=== PATIENT | male | born 1950 | race Caucasian/White ===

== ENCOUNTER 2020-10-23 16:33 | Inpatient (IN) ==
[2020-10-23] MEDS ORDERED: Dextrose Gel 15 GM/37.5 ML TUBE PO PRN ×2 (23:24)
[2020-10-23] MEDS ORDERED: D5% in Water 1,000 ML IVC PRN (23:24)
[2020-10-23] MEDS ORDERED: *HR* Dextrose 50 % in Water (Vial) 50 ML VIAL IVP PRN (23:24)
[2020-10-23] MEDS: Acetaminophen 325 MG TABLET PO PRN (23:59)
[2020-10-24] MEDS: Acetaminophen 325 MG TABLET PO PRN ×3 (06:06→21:17)
[2020-10-24 06:18] LABS: Basophils # 0.1 K/mcL (0.0-0.2); Basophils % 0.7 %; Eosinophils # 0.4 K/mcL (0.0-0.6); Eosinophils % 4.6 %; Hematocrit 37.3 % (37.5-50.1); Hemoglobin 12.4 g/dL (12.9-16.9); Immature Granulocytes % 0.3 % (0-4); Lymphocytes # 2.2 K/mcL (0.6-4.6); Lymphocytes % 24.1 %; Mean Corpuscular HGB Conc 33.2 g/dL (31.6-35.5); Mean Corpuscular Hemoglobin 30.5 pg (28.0-33.3); Mean Corpuscular Volume 91.6 fL (83.0-100.0); Mean Platelet Volume 11.2 fL (9.4-12.4); Monocytes # 0.7 K/mcL (0.0-1.3); Monocytes % 7.9 %; Neutrophils # 5.6 K/mcL (1.6-8.9); Platelet Count 157 K/mcL (140-400); Red Blood Count 4.07 M/mcL (4.19-5.50); Red Cell Distribution Width 13.9 % (11.5-14.5); Segmented Neutrophils % 62.4 %; White Blood Count 8.9 K/mcL (4.3-11.1)
[2020-10-24 06:31] LABS: INR 1.5; Prothrombin Time 16.9 Seconds (9.4-12.1)
[2020-10-24 06:34] LABS: Activated Partial Thrombo Time 33.2 Seconds (26.0-36.0)
[2020-10-24 06:42] LABS: BUN/Creatinine Ratio 38 (6-26); Blood Urea Nitrogen 24 mg/dL (8-23); Calcium 9.1 mg/dL (8.6-10.3); Carbon Dioxide 32 mEq/L (23-29); Chloride 97 mEq/L (98-107); Glucose 157 mg/dL (70-105); Osmolality,Calculated 289 (280-300); Potassium 3.6 mEq/L (3.5-5.1); Sodium 136 mEq/L (136-145); eGFR For African Americans > 60 (> 60); eGFR For Non-African Americans > 60 (> 60)
[2020-10-24] MEDS: Insulin LISPRO 300 UNITS/3 ML VIAL SUBQ SCH ×7 (08:45→21:19)
[2020-10-24] MEDS: Apixaban 5 MG TABLET PO SCH ×2 (08:45→21:17)
[2020-10-24] MEDS: Metoprolol XL (24 HR) Succ 50 MG TAB.ER.24H PO SCH (08:45)
[2020-10-24] MEDS: Furosemide 40 MG TABLET PO SCH (08:45)
[2020-10-24] MEDS: Aspirin Enteric Coated 81 MG Tablet PO SCH (08:45)
[2020-10-24] MEDS: [UNRECOGNIZED DRUG - OTHER] PO SCH (08:52)
[2020-10-24] MEDS: QUEtiapine Fumarate 25 MG TABLET PO SCH (21:17)
[2020-10-24] MEDS: Insulin DETEMIR 100 UNIT/ML X5UNITS SUBQ SCH (21:18)
[2020-10-25] MEDS: Acetaminophen 325 MG TABLET PO PRN ×3 (06:36→21:58)
[2020-10-25] MEDS: Metoprolol XL (24 HR) Succ 50 MG TAB.ER.24H PO SCH (08:37)
[2020-10-25] MEDS: Apixaban 5 MG TABLET PO SCH ×2 (08:37→21:58)
[2020-10-25] MEDS: Insulin LISPRO 300 UNITS/3 ML VIAL SUBQ SCH ×7 (08:37→21:59)
[2020-10-25] MEDS: Aspirin Enteric Coated 81 MG Tablet PO SCH (08:37)
[2020-10-25] MEDS: Furosemide 40 MG TABLET PO SCH (08:38)
[2020-10-25] MEDS: [UNRECOGNIZED DRUG - OTHER] PO SCH (08:38)
[2020-10-25] MEDS: QUEtiapine Fumarate 25 MG TABLET PO SCH (21:58)
[2020-10-25] MEDS: Insulin DETEMIR 100 UNIT/ML X5UNITS SUBQ SCH (21:59)
[2020-10-26] MEDS: Acetaminophen 325 MG TABLET PO PRN ×3 (06:44→21:08)
[2020-10-26] MEDS: Insulin LISPRO 300 UNITS/3 ML VIAL SUBQ SCH ×7 (09:44→21:29)
[2020-10-26] MEDS: [UNRECOGNIZED DRUG - OTHER] PO SCH (09:45)
[2020-10-26] MEDS: Metoprolol XL (24 HR) Succ 50 MG TAB.ER.24H PO SCH (09:52)
[2020-10-26] MEDS: Aspirin Enteric Coated 81 MG Tablet PO SCH (09:53)
[2020-10-26] MEDS: Apixaban 5 MG TABLET PO SCH ×2 (09:53→21:06)
[2020-10-26] MEDS: Furosemide 40 MG TABLET PO SCH (09:53)
[2020-10-26] MEDS: QUEtiapine Fumarate 25 MG TABLET PO SCH (21:08)
[2020-10-26] MEDS: Insulin DETEMIR 100 UNIT/ML X5UNITS SUBQ SCH (21:09)
[2020-10-27] MEDS: Insulin LISPRO 300 UNITS/3 ML VIAL SUBQ SCH ×7 (08:32→21:20)
[2020-10-27] MEDS: [UNRECOGNIZED DRUG - OTHER] PO SCH (08:34)
[2020-10-27] MEDS: Apixaban 5 MG TABLET PO SCH ×2 (08:34→21:14)
[2020-10-27] MEDS: Aspirin Enteric Coated 81 MG Tablet PO SCH (08:34)
[2020-10-27] MEDS: Metoprolol XL (24 HR) Succ 50 MG TAB.ER.24H PO SCH (08:34)
[2020-10-27] MEDS: Furosemide 40 MG TABLET PO SCH (08:34)
[2020-10-27] MEDS: Acetaminophen 325 MG TABLET PO PRN ×2 (12:30→21:20)
[2020-10-27] MEDS: Insulin DETEMIR 100 UNIT/ML X5UNITS SUBQ SCH (21:14)
[2020-10-27] MEDS: QUEtiapine Fumarate 25 MG TABLET PO SCH (21:14)
[2020-10-28] MEDS: Furosemide 40 MG TABLET PO SCH (07:44)
[2020-10-28] MEDS: Metoprolol XL (24 HR) Succ 50 MG TAB.ER.24H PO SCH (07:44)
[2020-10-28] MEDS: Apixaban 5 MG TABLET PO SCH ×2 (07:44→19:58)
[2020-10-28] MEDS: Acetaminophen 325 MG TABLET PO PRN ×2 (07:44→19:59)
[2020-10-28] MEDS: Aspirin Enteric Coated 81 MG Tablet PO SCH (07:44)
[2020-10-28] MEDS: Insulin LISPRO 300 UNITS/3 ML VIAL SUBQ SCH ×6 (07:51→19:59)
[2020-10-28] MEDS: [UNRECOGNIZED DRUG - OTHER] PO SCH (12:20)
[2020-10-28] MEDS: QUEtiapine Fumarate 25 MG TABLET PO SCH (19:58)
[2020-10-28] MEDS: Nystatin POWDER 30 GM BOTTLE TP SCH (19:58)
[2020-10-28] MEDS: Insulin DETEMIR 100 UNIT/ML X5UNITS SUBQ SCH (19:59)
[2020-10-29] MEDS: Acetaminophen 325 MG TABLET PO PRN ×2 (05:59→20:40)
[2020-10-29] MEDS: Furosemide 40 MG TABLET PO SCH (07:18)
[2020-10-29] MEDS: Apixaban 5 MG TABLET PO SCH ×2 (07:19→20:40)
[2020-10-29] MEDS: Metoprolol XL (24 HR) Succ 50 MG TAB.ER.24H PO SCH (07:19)
[2020-10-29] MEDS: Aspirin Enteric Coated 81 MG Tablet PO SCH (07:19)
[2020-10-29] MEDS: FOLIC PO SCH (07:19)
[2020-10-29] MEDS: Nystatin POWDER 30 GM BOTTLE TP SCH ×2 (07:20→20:40)
[2020-10-29] MEDS: Insulin LISPRO 300 UNITS/3 ML VIAL SUBQ SCH ×7 (07:22→20:41)
[2020-10-29] MEDS: QUEtiapine Fumarate 25 MG TABLET PO SCH (20:40)
[2020-10-29] MEDS: Insulin DETEMIR 100 UNIT/ML X5UNITS SUBQ SCH (20:41)
[2020-10-30 05:15] LABS: Basophils # 0.1 K/mcL (0.0-0.2); Basophils % 0.8 %; Eosinophils # 0.4 K/mcL (0.0-0.6); Eosinophils % 5.5 %; Hemoglobin 11.9 g/dL (12.9-16.9); Immature Granulocytes % 0.5 % (0-4); Lymphocytes # 2.2 K/mcL (0.6-4.6); Lymphocytes % 27.5 %; Mean Corpuscular HGB Conc 32.2 g/dL (31.6-35.5); Mean Corpuscular Hemoglobin 30.4 pg (28.0-33.3); Mean Corpuscular Volume 94.4 fL (83.0-100.0); Mean Platelet Volume 11.1 fL (9.4-12.4); Monocytes # 0.7 K/mcL (0.0-1.3); Neutrophils # 4.4 K/mcL (1.6-8.9); Platelet Count 138 K/mcL (140-400); Red Blood Count 3.92 M/mcL (4.19-5.50); Red Cell Distribution Width 14.5 % (11.5-14.5); Segmented Neutrophils % 56.7 %; White Blood Count 7.8 K/mcL (4.3-11.1)
[2020-10-30] MEDS: Acetaminophen 325 MG TABLET PO PRN (05:32)
[2020-10-30 05:33] LABS: BUN/Creatinine Ratio 22 (6-26); Blood Urea Nitrogen 14 mg/dL (8-23); Carbon Dioxide 35 mEq/L (23-29); Chloride 103 mEq/L (98-107); Glucose 99 mg/dL (70-105); Osmolality,Calculated 297 (280-300); Potassium 3.6 mEq/L (3.5-5.1); Sodium 143 mEq/L (136-145); eGFR For African Americans > 60 (> 60); eGFR For Non-African Americans > 60 (> 60)
[2020-10-30] MEDS: Insulin LISPRO 300 UNITS/3 ML VIAL SUBQ SCH ×6 (08:39→17:30)
[2020-10-30] MEDS: Metoprolol XL (24 HR) Succ 50 MG TAB.ER.24H PO SCH (08:43)
[2020-10-30] MEDS: Apixaban 5 MG TABLET PO SCH (08:43)
[2020-10-30] MEDS: Aspirin Enteric Coated 81 MG Tablet PO SCH (08:43)
[2020-10-30] MEDS: Furosemide 40 MG TABLET PO SCH (08:43)
[2020-10-30] MEDS: Nystatin POWDER 30 GM BOTTLE TP SCH (08:48)
[2020-10-30] MEDS: FOLIC PO SCH (08:48)
[2020-10-30 11:53] VITALS: BP 128/72
== END 2020-10-30 18:03 | disposition home or self-care (01) | DRG 945 ==
LOC: INPGRE 21:00
PROVIDERS: ADMIT Family Medicine; ATTEND Family Medicine